=== PATIENT | female | born 2000 | race African-American/Black ===

== ENCOUNTER 2024-09-13 20:55 | Emergency (ER) | payer OTHER ==
[~2024-09-13] VITALS: Ht 167.6 cm; Wt 116.1 kg
[2024-09-13 21:30] VITALS: PULSE 92; RESP 18; TEMP 98.1
[2024-09-13] MEDS ORDERED: TYLENOL325 MG PO (21:53)
[2024-09-13] MEDS ORDERED: IBUPROFEN600 MG PO (21:53)
[2024-09-13] MEDS ORDERED: LOSARTAN POTAS100 MG PO (21:53)
[2024-09-13] MEDS ORDERED: TIZANIDINE HCL4 MG PO (21:53)
[2024-09-13] MEDS: ACETAMINOPHEN 325 MG TAB PO ONE (22:06)
[2024-09-13] MEDS: IBUPROFEN 200 MG TAB PO ONE (22:06)
[2024-09-13] MEDS: DEXAMETHASONE SOD PHOS INJ 4 MG/ML SDV IM ONE (22:07)
[2024-09-13 22:50] VITALS: BP 167/108; PULSE 92; RESP 18; TEMP 98.4; O2SAT 99
== END 2024-09-13 22:50 | disposition home or self-care (01) ==
LOC: FSED 20:58
DX: M54.50 Low back pain, unspecified (principal); K45.8 Other specified abdominal hernia without obstruction or gangrene; I10 Essential (primary) hypertension
CPT/HCPCS: 72131; 81003; 81025; 96372; 99283; J1100